=== PATIENT | female | born 1950 | race Caucasian/White ===

== ENCOUNTER 2017-12-08 21:41 | Inpatient (IN) | payer OTHER ==
[~2017-12-08] VITALS: Ht 154.9 cm; Wt 72.6 kg
[2017-12-08 23:05] LABS: BASOPHIL % 0 % (0-2); PLATELET COUNT 82 x10^3mcL (130-400); RED CELL DISTRIBUTION WIDTH 14.7 % (11.5-14.5)
[2017-12-08 23:06] LABS: CARBON DIOXIDE 18.3 mmol/L (21-32); CREATININE SERUM 2.5 mg/dL (0.6-1.0); POTASSIUM SERUM 4.2 mmol/L (3.5-5.1)
[2017-12-08 23:11] LABS: ALBUMIN 3.9 g/dL (3.4-5.0); BILIRUBIN TOTAL 0.66 mg/dL (0.20-1.00); TOTAL PROTEIN, SERUM 7.7 g/dL (6.4-8.2)
[2017-12-09 00:34] VITALS: BP 115/40
[2017-12-09 00:35] LABS: FREE T4 0.97 ng/dL (0.76-1.46); FREE THYROXINE INDEX 2.5 ug/dL (1.4-4.5); T4(THYROXINE) 8.5 ug/dL (4.7-13.3)
[2017-12-09 01:02] LABS: CHOLESTEROL/HDL RATIO 3.3; MAGNESIUM 2.2 mg/dL (1.8-2.4); PHOSPHOROUS 4.3 mg/dL (2.5-4.9)
[2017-12-09 01:42] LABS: T3 TOTAL 1.23 ng/mL
[2017-12-09 04:56] LABS: BASOPHIL % 0.1 % (0-2)
[2017-12-09 05:07] VITALS: BP 99/50
[2017-12-09 05:12] LABS: PLATELET COUNT 72 x10^3mcL (130-400); RED CELL DISTRIBUTION WIDTH 14.7 % (11.5-14.5)
[2017-12-09 05:32] LABS: CALCIUM 7.7 mg/dL (8.5-10.1); CARBON DIOXIDE 21.6 mmol/L (21-32); CREATININE SERUM 1.8 mg/dL (0.6-1.0); POTASSIUM SERUM 4.1 mmol/L (3.5-5.1)
[2017-12-09 07:44] LABS: microscopic required? YES; urine erythrocyte NEGATIVE (NEGATIVE)
[2017-12-09 08:09] LABS: AMPHETAMINE QUAL UR NONE DETECTED (NEG <=1000)
[2017-12-09 09:27] VITALS: BP 104/82; BP 124/83
== END 2017-12-09 11:50 | disposition left against medical advice (07) | DRG 640 ==
LOC: ED 21:41 → DU 23:45
PROVIDERS: Emergency Medicine; Family Medicine
DX: E86.0 Dehydration (principal); G93.41 Metabolic encephalopathy; N17.0 Acute kidney failure with tubular necrosis; J10.2 Influenza due to other identified influenza virus with gastrointestinal manifestations; E11.65 Type 2 diabetes mellitus with hyperglycemia; R74.0 Nonspecific elevation of levels of transaminase and lactic acid dehydrogenase [LDH]; K58.9 Irritable bowel syndrome, unspecified; E78.1 Pure hyperglyceridemia; F17.210 Nicotine dependence, cigarettes, uncomplicated; Z68.30 Body mass index [BMI] 30.0-30.9, adult; Z85.038 Personal history of other malignant neoplasm of large intestine; Z98.0 Intestinal bypass and anastomosis status; Z92.21 Personal history of antineoplastic chemotherapy
CPT/HCPCS: 82962; 83880; 84439; 87046; 87046-59; 87804; G0480; J2405; J7030; Q0092